=== PATIENT | female | born 1960 | race Two or more races ===

== ENCOUNTER 2017-10-16 07:48 | Day surgery (SDC) | payer MEDICAID ==
[2017-10-12 09:21] LABS: Basophils # (auto) 0.1 uL; Basophils % (auto) 0.7 % (0.0-2.0); Eosinophils # (auto) 0.3 uL; Eosinophils % (auto) 3.1 % (0.0-7.0); Hematocrit 41.9 % (36.0-46.0); Hemoglobin 13.7 g/dL (12.2-16.2); Lymphocytes % (auto) 35.8 % (10.0-50.0); Mean Corpuscular Hemoglobin 28.6 pg (28.0-32.0); Mean Corpuscular Hgb Conc. 32.6 g/dL (32.0-36.0); Mean Corpuscular Volume 87.7 fL (80.0-100.0); Monocytes # (auto) 0.5 uL; Monocytes % (auto) 5.8 % (0.0-12.0); Neutrophils # (auto) 4.6 uL; Neutrophils % (auto) 54.6 % (37.0-80.0); Nucleated Red Blood Cells % 0.1 %; Platelet Count (auto) 154 10^3/uL (140-450); Red Blood Cells 4.78 10^6/uL (4.0-5.20); Red Cell Distribution Width 13.9 % (11.8-14.3); White Blood Cell 8.4 10^3/uL (4.4-10.8)
[2017-10-12 09:28] LABS: Urine Bacteria NONE SEEN /hpf (None Seen); Urine Blood Negative /uL (Negative); Urine Mucus FEW (None Seen); Urine Specific Gravity 1.013 (1.001-1.035); Urine WBC 2 /hpf (0 - 5)
[2017-10-12 09:36] LABS: INR 1.05 (0.9-1.15); Partial Thromboplastin Time 25.6 sec (23.78-33.04); Prothrombin Time 11.2 sec (9.27-12.13)
[~2017-10-16] VITALS: Ht 168.9 cm; Wt 106.6 kg
[2017-10-16] MEDS ORDERED: SODIUM CHLORIDE LOCK 10 ML ONE (09:10)
[2017-10-16] MEDS ORDERED: diphenhdrAMINE HCL 50 MG/1 ML VL ONE (09:10)
[2017-10-16] MEDS ORDERED: LIDOCAINE VISCOUS 2% 15ML UD ONE (09:10)
[2017-10-16] MEDS: MIDAZOLAM HCL 5 MG/ML-1ML VIAL ONE ×3 (09:16→09:24)
[2017-10-16] MEDS: fentaNYL CITRATE 100 MCG/2 ML VL ONE ×3 (09:16→09:24)
[2017-10-16 10:09] VITALS: BP 124/77
== END 2017-10-16 10:09 | disposition home or self-care (01) ==
LOC: GI 07:48
PROVIDERS: ATTEND Internal Medicine Gastroenterology
DX: K64.8 Other hemorrhoids (principal); K29.50 Unspecified chronic gastritis without bleeding; E66.9 Obesity, unspecified; E11.9 Type 2 diabetes mellitus without complications; E78.5 Hyperlipidemia, unspecified; I10 Essential (primary) hypertension; E07.9 Disorder of thyroid, unspecified; Z79.82 Long term (current) use of aspirin; Z79.84 Long term (current) use of oral hypoglycemic drugs; Z68.37 Body mass index [BMI] 37.0-37.9, adult; Z98.890 Other specified postprocedural states; Z90.710 Acquired absence of both cervix and uterus
CPT/HCPCS: 43239; 45378; 99152; J1200; J3010; J7030; 36415; 81001; 82962; 85025; 85610; 85730; A6257; J2250

== ENCOUNTER 2023-04-24 10:35 | Emergency (ER) | payer MEDICAID ==
[~2023-04-24] VITALS: Ht 149.9 cm; Wt 80.9 kg
[2023-04-24 10:48] VITALS: O2SAT 96
[2023-04-24 11:15] LABS: Basophils # (auto) 0.1 10 ^3/uL (0-0.2); Eosinophils # (auto) 0.2 10 ^3/uL (0-0.8); Eosinophils % (auto) 1.7 % (0.0-7.0); Hematocrit 32.1 % (36.0-46.0); Hemoglobin 10.4 g/dL (12.2-16.2); Lymphocytes # (auto) 2.4 10 ^3/uL (0.4-5.4); Lymphocytes % (auto) 22.6 % (10.0-50.0); Mean Corpuscular Hemoglobin 28.9 pg (28.0-32.0); Mean Corpuscular Hgb Conc. 32.4 g/dL (32.0-36.0); Mean Corpuscular Volume 89.2 fL (80.0-100.0); Monocytes % (auto) 9.4 % (0.0-12.0); Neutrophils # (auto) 7.1 10 ^3/uL (1.6-8.6); Neutrophils % (auto) 65.3 % (37.0-80.0); Nucleated Red Blood Cells % 0.1 %; Red Cell Distribution Width 14.2 % (11.8-14.3); White Blood Cell 10.8 10^3/uL (4.4-10.8)
[2023-04-24 11:32] LABS: Chloride 101 mmol/L (98-107); Potassium 3.7 mmol/L (3.5-5.1); Sodium 135 mmol/L (136-145)
[2023-04-24 11:33] LABS: Anion Gap 5 (5-15); Calcium 9.5 mg/dL (8.5-10.1); Carbon Dioxide 29 mmol/L (20-30)
[2023-04-24 11:38] LABS: BUN/Creatinine Ratio 18.3 (10.0-20.0); Blood Urea Nitrogen 11 mg/dL (9-23); Glucose 121 mg/dL (74-106)
[2023-04-24] MEDS: ONDANSETRON HCL 4 MG/2 ML VIAL IV ONE (13:33)
[2023-04-24] MEDS: MORPHINE SULFATE INJ 2 MG/ml SYRG IV ONE (13:34)
[2023-04-24 14:10] VITALS: BP 132/68; PULSE 80; RESP 18
== END 2023-04-24 14:20 | disposition home or self-care (01) ==
LOC: ER 10:35
DX: F41.8 Other specified anxiety disorders (principal); M79.661 Pain in right lower leg; I10 Essential (primary) hypertension; E03.9 Hypothyroidism, unspecified; E11.9 Type 2 diabetes mellitus without complications; E78.5 Hyperlipidemia, unspecified; J45.909 Unspecified asthma, uncomplicated; Z47.1 Aftercare following joint replacement surgery; Z90.710 Acquired absence of both cervix and uterus
CPT/HCPCS: 36415; 71045; 71275; 80048; 83880; 84484; 85025; 85379; 93005; 93971; 96374; 96375; 99285; J2270; J2405; Q9967